=== PATIENT | male | born 1970 | race Caucasian/White ===

== ENCOUNTER 2020-02-15 13:54 | Inpatient (IN) | payer OTHER ==
[~2020-02-15] VITALS: Ht 177.8 cm; Wt 91.4 kg
[~2020-02-15 13:54] MED LIST: [UNRECOGNIZED DRUG - REMARK] ORAL ONE
[2020-02-15 15:41] LABS: BASOPHILS % (AUTO) 1.6 % (0.0-2.0); EOSINOPHILS % (AUTO) 1.2 % (0.0-3.0); HEMATOCRIT 42.8 % (42.0-52.0); HEMOGLOBIN 14.5 G/DL (14.2-18.0); LYMPHOCYTES % (AUTO) 31.9 % (20.0-45.0); MEAN CORPUSCULAR VOLUME 95 FL (80-99); MONOCYTES % (AUTO) 8.4 % (1.0-10.0); PLATELET COUNT 171 K/UL (150-450); RED BLOOD COUNT 4.51 M/UL (4.70-6.10); RED CELL DISTRIBUTION WIDTH 12.5 % (11.6-14.8); WHITE BLOOD COUNT 6.8 K/UL (4.8-10.8)
[2020-02-15] MEDS ORDERED: BIKTARVY 50-201 EACH PO (16:26)
[2020-02-15] MEDS ORDERED: DiphenhydrAMINE 50mg/ml Inj IV PRN (16:30)
[2020-02-15] MEDS ORDERED: Hydrocortisone 100mg Inj IV PRN (16:30)
[2020-02-15] MEDS ORDERED: Zolpidem 5mg tab ORAL PRN (16:30)
[2020-02-15] MEDS ORDERED: Acetaminophen 500mg (ES) tab ORAL PRN (16:30)
--- NOTE | 2020-02-15 17:25 | History & Physical ---
History and Physical History & Physicial Full H&P dictated #[id number] 49 yo male admitted for participation in [id number] clinical trial. He feels well. Allergies: none Meds: Biktarvy 1 qD, Vyvance 10 mg qD PMH: well-controlled HIV infection; hyperlipidemia, mild glucose intolerance Soc: no EtOH x 20+ years, no cigarettes ROS: no fever, chills, cough, SOB, KENNY. Had neg COVID PCR test today. No n/v/d. No dyuria, hematuria. No BRAVO, AMS PE: WNWD male NAD VSS Heent: nc/at PERRLA EOMI, mouth clear Neck: supple Lungs: clear Cor: reg no murmur Abd: soft, NT Ext: no c/c/e Neuro: non-focal Assess: 1) clinical trial participant 2) HIV, well controlled 3) hyperlipidemia Plan: manage per protocol; pt has given informed consent and will receive study medication tomorrow morning. Mckinley Lynn MD Feb 15, 2020 17:25
--- NOTE | 2020-02-15 18:15 | History and Physical Report ---
DATE OF ADMISSION: 02/15/2020 CHIEF COMPLAINT: The patient is electively admitted for participation in [employer] clinical trial [id number]. HISTORY OF PRESENT ILLNESS: The patient is a 49-year-old man followed in my practice by nurse practitioner, Landry Johnson, for HIV infection. He was diagnosed over a decade ago with HIV and has been successfully treated most recently with Biktarvy. He has an undetectable viral load and normal CD4 counts. The patient wishes to participate in this clinical trial and is admitted for the same. PAST MEDICAL HISTORY: The patient has a history of hyperlipidemia, mild glucose intolerance, vitamin D deficiency, colon polyps, and hypogonadism. FAMILY HISTORY: Noncontributory. SOCIAL HISTORY: The patient is a peck male. He is a former smoker. 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 ALLERGIES: No known drug allergies. MEDICATIONS: As an outpatient include Vyvanse 10 mg once a day, vitamins, and Biktarvy one tablet once a day. REVIEW OF SYSTEMS: The patient denies fevers, chills, or sweats. Denies weight change. Denies cough or shortness of breath. No new dyspnea on exertion. No chest pain. No nausea, vomiting, or diarrhea. No dysuria. No headache. No altered mental status. PHYSICAL EXAMINATION: GENERAL: Revealed a well-nourished, well-developed male in no acute distress. VITAL SIGNS: Included temperature 98.4, heart rate of 93, blood pressure 132/84, and BMI of 29.4, his respiratory rate was 16 per minute. HEENT: Normocephalic and atraumatic. Pupils are equal, round, and reactive. Oropharynx was without thrush or leukoplakia. NECK: Supple. No cervical or axillary adenopathy was evident. LUNGS: Clear to auscultation. HEART: Regular rhythm without murmurs or gallops. ABDOMEN: Soft and nontender. There is no hepatosplenomegaly. Bowel sounds were normal. EXTREMITIES: Without cyanosis, clubbing, or edema. NEUROLOGIC: Grossly nonfocal. LABORATORY DATA: Pending. IMPRESSION: 1. Elective admission for participation in clinical trial. 2. Well-controlled HIV infection. 3. Hyperglycemia. 4. Hyperlipidemia. DISCUSSION: The patient is a very pleasant 49-year-old man admitted for participation in a clinical trial. He has been informed of the risks, benefits, and alternatives to his participation and he has elected to proceed having made his choice without constraint. PLAN: Management per clinical. Mckinley Lynn M.D. DR: Monico JOB#: [id number] CC: Mckinley Lynn M.D.; [address] [place] [address], [address]; [place] [address]; Fax#: [phone] [facility]
[2020-02-15] MEDS: Patient's Own Med - BIKTARVY 50-200-25MG TAB ORAL SCH (21:03)
[2020-02-16] MEDS ORDERED: [UNRECOGNIZED DRUG - REMARK] ORAL SCH (08:00)
--- NOTE | 2020-02-16 13:16 | General Progress Note ---
Progress Note Progress Note S: pt feels well, tolerated administration of IP this AM. No new complaints. O: VSS. Afebrile. HEENT: nc/at Lungs: clear to a/ Cor: reg rhythm, no murmurs, gallops Abd: soft, NT; BS normal Ext: no c/c/e Labs Test 02/15/20 14:30 White Blood Count 6.8 K/UL (4.8-10.8) Red Blood Count 4.51 M/UL (4.70-6.10) Hemoglobin 14.5 G/DL (14.2-18.0) Hematocrit 42.8 % (42.0-52.0) Mean Corpuscular Volume 95 FL (80-99) Mean Corpuscular Hemoglobin 32.2 PG (27.0-31.0) Mean Corpuscular Hemoglobin Concent 34.0 G/DL (32.0-36.0) Red Cell Distribution Width 12.5 % (11.6-14.8) Platelet Count 171 K/UL (150-450) Mean Platelet Volume 4.8 FL (6.5-10.1) Neutrophils (%) (Auto) 57.0 % (45.0-75.0) Lymphocytes (%) (Auto) 31.9 % (20.0-45.0) Monocytes (%) (Auto) 8.4 % (1.0-10.0) Eosinophils (%) (Auto) 1.2 % (0.0-3.0) Basophils (%) (Auto) 1.6 % (0.0-2.0) A: well-controlled HIV infection Participation in [id number] Hyperlipidemia P: continue management per protocol; anticipate d/c AM of 02/17 Mckinley Lynn MD Feb 16, 2020 13:16
[2020-02-16] MEDS: Patient's Own Med - BIKTARVY 50-200-25MG TAB ORAL SCH (20:09)
[2020-02-17 02:15] VITALS: BP 109/63
[2020-02-17 09:22] LABS: BASOPHILS % (AUTO) 1.4 % (0.0-2.0); HEMATOCRIT 46.2 % (42.0-52.0); HEMOGLOBIN 15.5 G/DL (14.2-18.0); LYMPHOCYTES % (AUTO) 35.8 % (20.0-45.0); MEAN CORPUSCULAR VOLUME 96 FL (80-99); MONOCYTES % (AUTO) 13.3 % (1.0-10.0); NEUTROPHILS % (AUTO) 47.5 % (45.0-75.0); PLATELET COUNT 212 K/UL (150-450); RED BLOOD COUNT 4.79 M/UL (4.70-6.10); RED CELL DISTRIBUTION WIDTH 12.3 % (11.6-14.8); WHITE BLOOD COUNT 3.8 K/UL (4.8-10.8)
--- NOTE | 2020-02-17 09:33 | General Progress Note ---
Progress Note Progress Note S: Pt doing well, has no new complaints this morning O: VSS Afebrile HEENT: nc/at Neck: supple Lungs: clear Cor: reg no murmurs Abd: soft, NT Skin: no rashes Labs Test 02/15/20 14:30 02/17/20 08:18 White Blood Count 6.8 K/UL (4.8-10.8) 3.8 K/UL (4.8-10.8) Red Blood Count 4.51 M/UL (4.70-6.10) 4.79 M/UL (4.70-6.10) Hemoglobin 14.5 G/DL (14.2-18.0) 15.5 G/DL (14.2-18.0) Hematocrit 42.8 % (42.0-52.0) 46.2 % (42.0-52.0) Mean Corpuscular Volume 95 FL (80-99) 96 FL (80-99) Mean Corpuscular Hemoglobin 32.2 PG (27.0-31.0) 32.3 PG (27.0-31.0) Mean Corpuscular Hemoglobin Concent 34.0 G/DL (32.0-36.0) 33.5 G/DL (32.0-36.0) Red Cell Distribution Width 12.5 % (11.6-14.8) 12.3 % (11.6-14.8) Platelet Count 171 K/UL (150-450) 212 K/UL (150-450) Mean Platelet Volume 4.8 FL (6.5-10.1) 5.8 FL (6.5-10.1) Neutrophils (%) (Auto) 57.0 % (45.0-75.0) 47.5 % (45.0-75.0) Lymphocytes (%) (Auto) 31.9 % (20.0-45.0) 35.8 % (20.0-45.0) Monocytes (%) (Auto) 8.4 % (1.0-10.0) 13.3 % (1.0-10.0) Eosinophils (%) (Auto) 1.2 % (0.0-3.0) 2.0 % (0.0-3.0) Basophils (%) (Auto) 1.6 % (0.0-2.0) 1.4 % (0.0-2.0) A: 1) Participation in [id number] 2) HIV infection, well controlled 3) hyperlipidemia P: 1) continue to manage per protocol 2) anticipate discharge in AM tomorrow if stable Mckinley Lynn MD Feb 17, 2020 09:33
[2020-02-17] MEDS: Patient's Own Med - BIKTARVY 50-200-25MG TAB ORAL SCH (21:11)
[2020-02-18 08:00] VITALS: BP 124/84
[2020-02-18 09:16] LABS: HEMATOCRIT 44.1 % (42.0-52.0); HEMOGLOBIN 15.2 G/DL (14.2-18.0); MEAN CORPUSCULAR VOLUME 91 FL (80-99); PLATELET COUNT 227 K/UL (150-450); RED BLOOD COUNT 4.87 M/UL (4.70-6.10); RED CELL DISTRIBUTION WIDTH 12.1 % (11.6-14.8); WHITE BLOOD COUNT 3.8 K/UL (4.8-10.8)
--- NOTE | 2020-02-18 22:00 | Discharge Summary ---
DATE OF ADMISSION: 02/15/2020 DATE OF DISCHARGE: 02/18/2020 DISCHARGE DIAGNOSES: 1. Participation in [employer] clinical trial [id number]. 2. HIV infection, well controlled. 3. Hyperlipidemia. HISTORY OF PRESENT ILLNESS AND HOSPITAL COURSE: Patient is a 49-year-old man, followed by my associate, Dr. Mckinley Gonzales for HIV infection. He is a participant in the above clinical trial and was admitted on 02/15/2020 pursuant to the protocol. He received investigational product on the second hospital day and tolerated well. There were no adverse events noted. His hematology studies were stable. The patient was discharged in good condition to home with follow up in the office next week. DISCHARGE MEDICATIONS: 1. Biktarvy 1 tablet once a day. 2. Vyvanse 10 mg once a day. Mckinley Lynn M.D. DR: ALIREZA JOB#: [id number] CC: Mckinley Lynn MD; [address] [facility], [address]; [place] [address]; Fax#: [phone]
== END 2020-02-18 09:30 | disposition home or self-care (01) | DRG 951 ==
LOC: 3E 16:14
DX: Z00.6 Encounter for examination for normal comparison and control in clinical research program (principal); B20 Human immunodeficiency virus [HIV] disease; E78.5 Hyperlipidemia, unspecified; R73.9 Hyperglycemia, unspecified; E74.39 Other disorders of intestinal carbohydrate absorption; E55.9 Vitamin D deficiency, unspecified; Z79.899 Other long term (current) drug therapy; Z87.891 Personal history of nicotine dependence
CPT/HCPCS: 36415; 85007; 85025

== ENCOUNTER 2020-02-16 07:39 | Inpatient (IN) | payer OTHER ==
[~2020-02-16] VITALS: Ht 177.8 cm; Wt 92.1 kg
[~2020-02-16 07:39] MED LIST changes: +BIKTARVY 50-201 EACH PO; -[UNRECOGNIZED DRUG - REMARK] ORAL ONE
[2020-02-29] MEDS ORDERED: Zolpidem 5mg tab ORAL PRN (07:15)
[2020-02-29] MEDS ORDERED: Acetaminophen 500mg (ES) tab ORAL PRN (07:15)
[2020-02-29] MEDS ORDERED: DiphenhydrAMINE 50mg/ml Inj IV PRN (07:15)
[2020-02-29] MEDS ORDERED: Hydrocortisone 100mg Inj IV PRN (07:15)
--- NOTE | 2020-02-29 12:45 | History and Physical Report ---
DATE OF ADMISSION: 02/29/2020 CHIEF COMPLAINT: The patient is electively admitted for participation in [employer] clinical trial, [id number]. HISTORY OF PRESENT ILLNESS: The patient is a 49-year-old man followed by my colleague, Dr. Rogers for HIV infection, which has been well controlled. He is participating in the above clinical trial. This involves 5 hospitalizations over 10 weeks for three nights each. The patient is given investigational product at each visit. This is the second of five projected visits. He tolerated the first administration of the medication without any noticeable adverse events and now is admitted for the second of five cycles. PAST MEDICAL HISTORY: He was diagnosed with HIV many years ago. There is a history of hyperlipidemia and hypogonadism. The patient has a history of binge eating disorder, but is otherwise healthy. FAMILY HISTORY: Noncontributory. SOCIAL HISTORY: The patient does not smoke or drink. ALLERGIES: No known drug allergies. MEDICATIONS: Include Biktarvy 1 tablet once a day, Vyvanse 10 mg capsules once a day, and vitamins. REVIEW OF SYSTEMS: He denies fever, cough, or shortness of breath. He denies nausea, vomiting, or diarrhea. He denies dysuria or hematuria. He denies headache or altered mental status. PHYSICAL EXAMINATION: GENERAL: Revealed a well-nourished and well-developed male, in no acute distress. He is alert and oriented x4. VITAL SIGNS: Pending. HEENT: Normocephalic and atraumatic. Pupils are equal, round, and reactive. Oropharynx was without thrush or leukoplakia. NECK: Supple. No cervical or axillary adenopathy. LUNGS: Clear to auscultation. HEART: Regular rhythm without murmurs or gallops. ABDOMEN: Soft and nontender without hepatosplenomegaly. EXTREMITIES: Without cyanosis, clubbing, or edema. NEUROLOGIC: Grossly nonfocal. IMPRESSION: 1. Participation in [employer] clinical trial, [id number]. 2. HIV infection, well controlled on Biktarvy. 3. Hyperlipidemia. 4. Binge eating disorder. 5. Hypogonadism. DISCUSSION: The patient is a 49-year-old man participating in a clinical trial. I am satisfied that he has given his assent to continue participation without constraint. He has been given an opportunity to verbalize questions, all of which were addressed. PLAN: Proceed per protocol. Mckinley Lynn M.D. DR: ANNIE JOB#: [id number] CC: Mckinley Lynn M.D.; [address] [place] [address]; [place] [id number]; Fax#: [phone]
[2020-02-29 15:30] VITALS: BP 126/84
[2020-02-29 16:06] LABS: BASOPHILS % (AUTO) 1.1 % (0.0-2.0); EOSINOPHILS % (AUTO) 1.3 % (0.0-3.0); HEMATOCRIT 44.1 % (42.0-52.0); HEMOGLOBIN 14.8 G/DL (14.2-18.0); MEAN CORPUSCULAR VOLUME 96 FL (80-99); MONOCYTES % (AUTO) 10.4 % (1.0-10.0); NEUTROPHILS % (AUTO) 52.2 % (45.0-75.0); PLATELET COUNT 258 K/UL (150-450); RED BLOOD COUNT 4.62 M/UL (4.70-6.10); RED CELL DISTRIBUTION WIDTH 12.8 % (11.6-14.8); WHITE BLOOD COUNT 5.2 K/UL (4.8-10.8)
[2020-02-29] MEDS: BIKTARVY ORAL SCH (21:11)
[2020-03-01] MEDS ORDERED: [UNRECOGNIZED DRUG - OTHER] IVPB ONE (07:00)
[2020-03-01] MEDS ORDERED: [UNRECOGNIZED DRUG - REMARK] ORAL SCH (08:00)
--- NOTE | 2020-03-01 14:52 | General Progress Note ---
Progress Note Progress Note S: pt doing well, no new complaints. Tolerated administration well of IP (PO and IV); no observed AEs to now O: VSS Afebrile HEENT: nc/at Lungs: clear Cor: reg Abd: soft, NT Ext: no c/c/e Labs Test 02/29/20 15:00 White Blood Count 5.2 K/UL (4.8-10.8) Red Blood Count 4.62 M/UL (4.70-6.10) Hemoglobin 14.8 G/DL (14.2-18.0) Hematocrit 44.1 % (42.0-52.0) Mean Corpuscular Volume 96 FL (80-99) Mean Corpuscular Hemoglobin 32.1 PG (27.0-31.0) Mean Corpuscular Hemoglobin Concent 33.6 G/DL (32.0-36.0) Red Cell Distribution Width 12.8 % (11.6-14.8) Platelet Count 258 K/UL (150-450) Mean Platelet Volume 5.2 FL (6.5-10.1) Neutrophils (%) (Auto) 52.2 % (45.0-75.0) Lymphocytes (%) (Auto) 35.0 % (20.0-45.0) Monocytes (%) (Auto) 10.4 % (1.0-10.0) Eosinophils (%) (Auto) 1.3 % (0.0-3.0) Basophils (%) (Auto) 1.1 % (0.0-2.0) A: 1) participation in clinical trial. Pt wishes to continue. 2) HIV infection, well controlled P: 1) Continue to manage per protocol 2) anticipate d/c AM 115 if stable Mckinley Lynn MD Mar 01, 2020 14:52
[2020-03-01] MEDS: BIKTARVY ORAL SCH (21:41)
[2020-03-02 02:30] VITALS: BP 101/102
--- NOTE | 2020-03-02 08:17 | General Progress Note ---
Progress Note Progress Note S: pt doing well, no new complaints this morning. Tolerated IPs yesterday w/o any observed AEs O: VSS Afebrile HEENT: nc/at Neck: supple Lungs: clear Cor: reg Abd: soft, NT Ext: no c/c/e Skin: no rash Labs Test 02/29/20 15:00 White Blood Count 5.2 K/UL (4.8-10.8) Red Blood Count 4.62 M/UL (4.70-6.10) Hemoglobin 14.8 G/DL (14.2-18.0) Hematocrit 44.1 % (42.0-52.0) Mean Corpuscular Volume 96 FL (80-99) Mean Corpuscular Hemoglobin 32.1 PG (27.0-31.0) Mean Corpuscular Hemoglobin Concent 33.6 G/DL (32.0-36.0) Red Cell Distribution Width 12.8 % (11.6-14.8) Platelet Count 258 K/UL (150-450) Mean Platelet Volume 5.2 FL (6.5-10.1) Neutrophils (%) (Auto) 52.2 % (45.0-75.0) Lymphocytes (%) (Auto) 35.0 % (20.0-45.0) Monocytes (%) (Auto) 10.4 % (1.0-10.0) Eosinophils (%) (Auto) 1.3 % (0.0-3.0) Basophils (%) (Auto) 1.1 % (0.0-2.0) A: 1) participation in clinical trial 2) HIV infection, well-controlled P: 1) continue to manage per protocol 2) anticipate d/c in AM if stable overnight Mckinley Lynn MD Mar 02, 2020 08:17
[2020-03-02 09:14] LABS: EOSINOPHILS % (AUTO) 1.4 % (0.0-3.0); HEMATOCRIT 48.4 % (42.0-52.0); HEMOGLOBIN 16.2 G/DL (14.2-18.0); LYMPHOCYTES % (AUTO) 36.4 % (20.0-45.0); MEAN CORPUSCULAR VOLUME 97 FL (80-99); MONOCYTES % (AUTO) 10.9 % (1.0-10.0); NEUTROPHILS % (AUTO) 50.3 % (45.0-75.0); PLATELET COUNT 242 K/UL (150-450); RED BLOOD COUNT 4.98 M/UL (4.70-6.10); RED CELL DISTRIBUTION WIDTH 12.5 % (11.6-14.8); WHITE BLOOD COUNT 4.7 K/UL (4.8-10.8)
[2020-03-02 20:30] VITALS: BP_SYST 125; BP_SYST 128; BP_DIAS 76; BP_DIAS 80
[2020-03-02] MEDS: BIKTARVY ORAL SCH (20:59)
--- NOTE | 2020-03-03 08:15 | Discharge Summary ---
DATE OF ADMISSION: 02/29/2020 DATE OF DISCHARGE: 03/03/2020 DISCHARGE DIAGNOSES: 1. HIV infection, well controlled. 2. Participation in [employer] clinical trial, [id number]. 3. History of binge eating disorder. HISTORY OF PRESENT ILLNESS/HOSPITAL COURSE: The patient was electively admitted on the 2nd for participation in the above clinical trial. He received infusion and investigational product on the second hospital day, which he tolerated without any observed adverse events. Remainder of his hospitalization was uneventful. DISCHARGE MEDICATIONS: Include Biktarvy one tablet once a day, Vyvanse 10 mg once a day, and vitamins. Follow-up will be at the office. Discharge is to home. Mckinley Lynn M.D. DR: SUBHASH/DAKOTAH JOB#: [id number] CC: Mckinley Lynn M.D.; [address] [facility], [address]; [place] [address]
[2020-03-03 09:29] LABS: BASOPHILS % (AUTO) 1.1 % (0.0-2.0); EOSINOPHILS % (AUTO) 1.8 % (0.0-3.0); HEMATOCRIT 49.5 % (42.0-52.0); HEMOGLOBIN 16.3 G/DL (14.2-18.0); LYMPHOCYTES % (AUTO) 34.7 % (20.0-45.0); MEAN CORPUSCULAR VOLUME 99 FL (80-99); MONOCYTES % (AUTO) 14.3 % (1.0-10.0); NEUTROPHILS % (AUTO) 48.1 % (45.0-75.0); PLATELET COUNT 233 K/UL (150-450); RED BLOOD COUNT 5.01 M/UL (4.70-6.10); RED CELL DISTRIBUTION WIDTH 12.7 % (11.6-14.8); WHITE BLOOD COUNT 4.2 K/UL (4.8-10.8)
== END 2020-03-03 08:03 | disposition home or self-care (01) | DRG 951 ==
LOC: 3E 02-29 15:07
DX: Z00.6 Encounter for examination for normal comparison and control in clinical research program (principal); B20 Human immunodeficiency virus [HIV] disease; F50.81 Binge eating disorder; Z68.29 Body mass index [BMI] 29.0-29.9, adult; E78.5 Hyperlipidemia, unspecified; E29.1 Testicular hypofunction
CPT/HCPCS: 36415; 85025

== ENCOUNTER 2020-03-14 07:47 | Inpatient (IN) | payer OTHER ==
[~2020-03-14] VITALS: Ht 177.8 cm; Wt 90.7 kg
[~2020-03-14 07:47] MED LIST changes: +Acetaminophen 500mg (ES) tab ORAL PRN; +DiphenhydrAMINE 50mg/ml Inj IV PRN; +Hydrocortisone 100mg Inj IV PRN
--- NOTE | 2020-03-14 15:22 | History & Physical ---
History and Physical History & Physicial Full H&P dictated #[id number]. 49 yo male electively admitted for continued participation in [id number]. No interval problems since prior hospitalization, and he feels well. Will manage per protocol. Mckinley Lynn MD Mar 14, 2020 15:22
[2020-03-14 15:47] LABS: BASOPHILS % (AUTO) 1.5 % (0.0-2.0); EOSINOPHILS % (AUTO) 0.8 % (0.0-3.0); HEMATOCRIT 43.7 % (42.0-52.0); HEMOGLOBIN 14.8 G/DL (14.2-18.0); LYMPHOCYTES % (AUTO) 37.5 % (20.0-45.0); MEAN CORPUSCULAR VOLUME 95 FL (80-99); MONOCYTES % (AUTO) 12.1 % (1.0-10.0); NEUTROPHILS % (AUTO) 48.2 % (45.0-75.0); PLATELET COUNT 205 K/UL (150-450); RED BLOOD COUNT 4.58 M/UL (4.70-6.10); RED CELL DISTRIBUTION WIDTH 12.5 % (11.6-14.8); WHITE BLOOD COUNT 5.2 K/UL (4.8-10.8)
[2020-03-14 16:00] VITALS: BP 130/89
--- NOTE | 2020-03-14 17:00 | History and Physical Report ---
DATE OF ADMISSION: 03/14/2020 CHIEF COMPLAINT: The patient is electively admitted for participation in [employer] Clinical Trial [id number]. HISTORY OF PRESENT ILLNESS: The patient is a 49-year-old man, followed by my colleague, Dr. Garza for HIV infection, which has been historically well controlled. He is participating in the above clinical trial, which involves a series of 5 biweekly hospitalizations and treatment with the investigational product. This is cycle #3 for the patient. He has tolerated the previous 2 administrations of IP well without any adverse events noted. PAST MEDICAL HISTORY: He was diagnosed with HIV 20 years ago. He has a history of hyperlipidemia and hypogonadism as well as binge eating disorder. FAMILY HISTORY: Noncontributory. SOCIAL HISTORY: The patient does not smoke or drink. ALLERGIES: The patient has no known drug allergies. MEDICATIONS: As an outpatient include Biktarvy 1 tablet once a day and Vyvanse 10 mg once a day as needed, although he has not been taking this lately. REVIEW OF SYSTEMS: The patient denies fever or chills. Denies cough or shortness of breath. Denies nausea or vomiting. No diarrhea. No hematuria. No dysuria. No headache. No altered mental status. PHYSICAL EXAMINATION: GENERAL: Revealed a well-nourished, well-developed male in no acute distress. He is alert, oriented x4, and cooperative. VITAL SIGNS: Pending. HEENT: Normocephalic, atraumatic. Pupils equal, round, and reactive. Oropharynx was without thrush or leukoplakia. NECK: Supple. There was no cervical or axillary adenopathy. LUNGS: Clear to auscultation. HEART: Had regular rhythm without murmurs or gallops. ABDOMEN: Soft and nontender. There was no hepatosplenomegaly. EXTREMITIES: Without cyanosis, clubbing, or edema. NEUROLOGIC: Grossly nonfocal. IMPRESSION: 1. HIV infection, well controlled. 2. Hyperlipidemia. 3. Hypogonadism. 4. Binge eating disorder history. 5. Participation in [employer] Clinical Trial [id number]. DISCUSSION: The patient is a 49-year-old man participating in the above clinical trial. He wishes to continue his participation and continues to offer his informed consent to do this. Our plan will be to dose investigational products tomorrow morning with confinement continued for 2 hospital days after that. The patient was given an opportunity to verbalize all questions, which were addressed. PLAN: manage per protocol. Mckinley Lynn M.D. DR: Nayan JOB#: [id number] CC: Mckinley Lynn MD; [address] [facility], [facility] [address]; [place], [place] ; Fax#: [phone] [facility]
[2020-03-14 20:00] VITALS: BP 130/81
[2020-03-14] MEDS: Patient's Own Med - Biktarvy ORAL SCH (20:13)
[2020-03-15] MEDS ORDERED: [UNRECOGNIZED DRUG - OTHER] IVPB SCH (08:10)
[2020-03-15] MEDS ORDERED: [UNRECOGNIZED DRUG - REMARK] ORAL SCH (09:10)
--- NOTE | 2020-03-15 14:44 | General Progress Note ---
Progress Note Progress Note S: pt doing well with no new complaints; tolerated IPs this AM w/o any observed AEs O: VSS. Afebrile HEENT: nc/at Lungs: clear Cor: reg Abd: soft, NT Ext: no c/c/e Neuro: non-focal Skin: no rashes Labs Test 03/14/20 15:30 White Blood Count 5.2 K/UL (4.8-10.8) Red Blood Count 4.58 M/UL (4.70-6.10) Hemoglobin 14.8 G/DL (14.2-18.0) Hematocrit 43.7 % (42.0-52.0) Mean Corpuscular Volume 95 FL (80-99) Mean Corpuscular Hemoglobin 32.4 PG (27.0-31.0) Mean Corpuscular Hemoglobin Concent 33.9 G/DL (32.0-36.0) Red Cell Distribution Width 12.5 % (11.6-14.8) Platelet Count 205 K/UL (150-450) Mean Platelet Volume 4.9 FL (6.5-10.1) Neutrophils (%) (Auto) 48.2 % (45.0-75.0) Lymphocytes (%) (Auto) 37.5 % (20.0-45.0) Monocytes (%) (Auto) 12.1 % (1.0-10.0) Eosinophils (%) (Auto) 0.8 % (0.0-3.0) Basophils (%) (Auto) 1.5 % (0.0-2.0) A: 1) HIV infection, well controlled 2) participation in clinical trial; pt wishes to continue P: 1) continue to manage per protocol 2) anticipate d/c 03/17 if stable Mckinley Lynn MD Mar 15, 2020 14:44
[2020-03-15] MEDS: Patient's Own Med - Biktarvy ORAL SCH (20:10)
[2020-03-16 03:10] VITALS: BP 100/60
--- NOTE | 2020-03-16 08:14 | General Progress Note ---
Progress Note Progress Note S: pt has no new complaints this AM, feels well O: VSS Afebrile HEENT: nc/at Lungs: clear Cor: reg no murmurs Abd: soft, NT Ext: no c/c/e Skin: no rashes Neuro: non-focal Labs Test 03/14/20 15:30 White Blood Count 5.2 K/UL (4.8-10.8) Red Blood Count 4.58 M/UL (4.70-6.10) Hemoglobin 14.8 G/DL (14.2-18.0) Hematocrit 43.7 % (42.0-52.0) Mean Corpuscular Volume 95 FL (80-99) Mean Corpuscular Hemoglobin 32.4 PG (27.0-31.0) Mean Corpuscular Hemoglobin Concent 33.9 G/DL (32.0-36.0) Red Cell Distribution Width 12.5 % (11.6-14.8) Platelet Count 205 K/UL (150-450) Mean Platelet Volume 4.9 FL (6.5-10.1) Neutrophils (%) (Auto) 48.2 % (45.0-75.0) Lymphocytes (%) (Auto) 37.5 % (20.0-45.0) Monocytes (%) (Auto) 12.1 % (1.0-10.0) Eosinophils (%) (Auto) 0.8 % (0.0-3.0) Basophils (%) (Auto) 1.5 % (0.0-2.0) A: 1) participation in [id number] clinical trial - doing well w/o AEs noted 2) HIV infection, well controlled on ART P: 1) manage per protocol 2) anticipate discharge in AM if stable overnight Mckinley Lynn MD Mar 16, 2020 08:14
[2020-03-16 08:27] LABS: BASOPHILS % (AUTO) 1.2 % (0.0-2.0); EOSINOPHILS % (AUTO) 2.6 % (0.0-3.0); HEMATOCRIT 47.2 % (42.0-52.0); HEMOGLOBIN 15.6 G/DL (14.2-18.0); MEAN CORPUSCULAR VOLUME 99 FL (80-99); MONOCYTES % (AUTO) 12.9 % (1.0-10.0); NEUTROPHILS % (AUTO) 45.3 % (45.0-75.0); PLATELET COUNT 197 K/UL (150-450); RED BLOOD COUNT 4.78 M/UL (4.70-6.10); RED CELL DISTRIBUTION WIDTH 12.5 % (11.6-14.8); WHITE BLOOD COUNT 3.7 K/UL (4.8-10.8)
[2020-03-16] MEDS: Patient's Own Med - Biktarvy ORAL SCH (21:14)
[2020-03-17 08:23] LABS: BASOPHILS % (AUTO) 1.5 % (0.0-2.0); HEMATOCRIT 45.9 % (42.0-52.0); HEMOGLOBIN 15.5 G/DL (14.2-18.0); LYMPHOCYTES % (AUTO) 32.7 % (20.0-45.0); MEAN CORPUSCULAR VOLUME 96 FL (80-99); MONOCYTES % (AUTO) 15.2 % (1.0-10.0); NEUTROPHILS % (AUTO) 48.5 % (45.0-75.0); PLATELET COUNT 208 K/UL (150-450); RED BLOOD COUNT 4.76 M/UL (4.70-6.10); RED CELL DISTRIBUTION WIDTH 12.4 % (11.6-14.8); WHITE BLOOD COUNT 4.2 K/UL (4.8-10.8)
--- NOTE | 2020-03-18 02:00 | Discharge Summary ---
DATE OF ADMISSION: 03/14/2020 DATE OF DISCHARGE: 03/17/2020 DISCHARGE DIAGNOSES: 1. Participation in [employer] clinical trial, [id number]. 2. HIV infection, well controlled on Biktarvy. 3. History of hyperlipidemia. 4. History of hypogonadism. 5. History of binge eating disorder. HISTORY OF PRESENT ILLNESS AND HOSPITAL COURSE: The patient is a 49-year-old man who was electively admitted for participation in the above clinical trial. He received investigational product on the second hospital day and tolerated it well without any adverse events noted. He is discharged in stable condition to home with followup in the office next Saturday. DISCHARGE MEDICATIONS: Included Biktarvy 1 tablet once a day and Vyvanse 10 mg once a day as needed although he states he has not been taking this recently. Mckinley Lynn M.D. DR: SELINA JOB#: [id number] CC: Mckinley Lynn M.D.; [address] [place] [address], [facility] [address] ; [place] [id number]; Fax#: [phone]
== END 2020-03-17 08:39 | disposition home or self-care (01) | DRG 951 ==
LOC: 3E 14:40
DX: Z00.6 Encounter for examination for normal comparison and control in clinical research program (principal); B20 Human immunodeficiency virus [HIV] disease; E78.5 Hyperlipidemia, unspecified; F50.81 Binge eating disorder
CPT/HCPCS: 36415; 85025

== ENCOUNTER 2020-03-28 07:51 | Inpatient (IN) | payer OTHER ==
[~2020-03-28] VITALS: Ht 177.8 cm; Wt 90.7 kg
[~2020-03-28 07:51] MED LIST changes: +Zolpidem 5mg tab ORAL PRN
[2020-03-28 14:48] LABS: BASOPHILS % (AUTO) 1.2 % (0.0-2.0); EOSINOPHILS % (AUTO) 1.1 % (0.0-3.0); HEMOGLOBIN 15.5 G/DL (14.2-18.0); LYMPHOCYTES % (AUTO) 33.3 % (20.0-45.0); MEAN CORPUSCULAR VOLUME 94 FL (80-99); MONOCYTES % (AUTO) 10.1 % (1.0-10.0); NEUTROPHILS % (AUTO) 54.3 % (45.0-75.0); PLATELET COUNT 242 K/UL (150-450); RED BLOOD COUNT 4.81 M/UL (4.70-6.10); RED CELL DISTRIBUTION WIDTH 12.8 % (11.6-14.8); WHITE BLOOD COUNT 6.6 K/UL (4.8-10.8)
--- NOTE | 2020-03-28 15:10 | History & Physical ---
History and Physical History & Physicial Full H&P dictated #[id number] 49 yo male electively admitted for continued participation in [id number]. No interval problems since prior hospitalization, and he feels well. Will manage per protocol. Mckinley Lynn MD Mar 28, 2020 15:10
[2020-03-28 15:15] VITALS: BP 121/77
--- NOTE | 2020-03-28 16:14 | History and Physical Report ---
DATE OF ADMISSION: 03/28/2020 CHIEF COMPLAINT: The patient is electively admitted for continued participation in [employer] clinical trial, [id number]. HISTORY OF PRESENT ILLNESS: The patient is a 49-year-old man followed by my associate, Dr. Rogers for HIV infection, which has been well controlled on Biktarvy. He is now admitted for the fourth of 5 cycles of investigational product. There is no significant interval medical history since his last discharge 10 days ago. He has been feeling well. PAST MEDICAL HISTORY: The patient was diagnosed with HIV 20 years ago. There is a history of hyperlipidemia, hypogonadism, as well as binge eating disorder. FAMILY HISTORY: Noncontributory. SOCIAL HISTORY: The patient does not smoke or drink. ALLERGIES: No known drug allergies. MEDICATIONS: Biktarvy 1 tablet daily and Vyvanse 10 mg once a day as needed, although he has not been taking this recently. REVIEW OF SYSTEMS: Denies fevers, chills, cough, shortness of breath, dyspnea on exertion, or chest pain. Denies nausea, vomiting, or diarrhea. Denies dysuria, hematuria. No history of headaches or altered mental status or paresthesias. PHYSICAL EXAMINATION: GENERAL: A well-nourished, well-developed male who is alert and oriented x4 and cooperative. VITAL SIGNS: Pending. HEENT: Normocephalic, atraumatic. Pupils equal, round, and reactive. Oropharynx was without thrush or leukoplakia. NECK: Supple. No cervical or axillary adenopathy. LUNGS: Clear to auscultation. HEART: Regular bradycardia. ABDOMEN: Soft and nontender. EXTREMITIES: Without cyanosis, clubbing, or edema. SKIN: No rash. NEUROLOGIC: Grossly nonfocal. IMPRESSION: 1. Participation in [employer] clinical trial, [id number]. 2. HIV infection, well controlled on Biktarvy. 3. Hypogonadism. 4. Hyperlipidemia. 5. History of binge eating disorder. DISCUSSION/PLAN: The patient is a 49-year-old man who wishes to continue his participation in this clinical trial. I am satisfied that he has given his consent without coercion. We will manage the patient per the protocol, and we will dose investigational products in the morning and observe for the following 2 nights and plan on discharge on if he is clinically stable. Mckinley Lynn M.D. DR: PRISCILA JOB#: [id number] CC: SUDHA
[2020-03-28] MEDS: Patient's Own Med - Biktarvy ORAL SCH (18:41)
[2020-03-28 20:00] VITALS: BP 123/77
[2020-03-28] MEDS ORDERED: Patient's Own Med - Biktarvy ORAL SCH (21:00)
[2020-03-29] MEDS ORDERED: [UNRECOGNIZED DRUG - OTHER] IVPB SCH (08:10)
[2020-03-29] MEDS ORDERED: [UNRECOGNIZED DRUG - REMARK] ORAL SCH (09:10)
--- NOTE | 2020-03-29 15:55 | General Progress Note ---
Progress Note Progress Note S: pt doing well, no new complaints; tolerated IP administration this AM w/0 observed AEs O: VSS Afebrile HEENT: nc/at Neck: supple Lungs: clear Cor: reg no murmurs Abd: soft, NT Ext: no c/c/e Skin: no rashes Neuro: non-focal Labs Test 03/28/20 14:04 White Blood Count 6.6 K/UL (4.8-10.8) Red Blood Count 4.81 M/UL (4.70-6.10) Hemoglobin 15.5 G/DL (14.2-18.0) Hematocrit 45.0 % (42.0-52.0) Mean Corpuscular Volume 94 FL (80-99) Mean Corpuscular Hemoglobin 32.3 PG (27.0-31.0) Mean Corpuscular Hemoglobin Concent 34.5 G/DL (32.0-36.0) Red Cell Distribution Width 12.8 % (11.6-14.8) Platelet Count 242 K/UL (150-450) Mean Platelet Volume 5.1 FL (6.5-10.1) Neutrophils (%) (Auto) 54.3 % (45.0-75.0) Lymphocytes (%) (Auto) 33.3 % (20.0-45.0) Monocytes (%) (Auto) 10.1 % (1.0-10.0) Eosinophils (%) (Auto) 1.1 % (0.0-3.0) Basophils (%) (Auto) 1.2 % (0.0-2.0) A: 1) HIV, well controlled 2) h/o binge eating disorder, not active 3) participation in clinical trial. Pt is doing well and wishes to continue P: 1) manage per protocol. Anticipate d/c Thurs AM if stable Mckinley Lynn MD Mar 29, 2020 15:55
[2020-03-29] MEDS: Patient's Own Med - Biktarvy ORAL SCH (18:10)
[2020-03-29 20:00] VITALS: BP 130/85
[2020-03-30 08:28] LABS: BASOPHILS % (AUTO) 1.7 % (0.0-2.0); HEMATOCRIT 41.2 % (42.0-52.0); HEMOGLOBIN 14.8 G/DL (14.2-18.0); LYMPHOCYTES % (AUTO) 31.8 % (20.0-45.0); MEAN CORPUSCULAR VOLUME 90 FL (80-99); MONOCYTES % (AUTO) 13.4 % (1.0-10.0); NEUTROPHILS % (AUTO) 51.1 % (45.0-75.0); PLATELET COUNT 221 K/UL (150-450); RED BLOOD COUNT 4.58 M/UL (4.70-6.10); RED CELL DISTRIBUTION WIDTH 13.7 % (11.6-14.8); WHITE BLOOD COUNT 3.8 K/UL (4.8-10.8)
--- NOTE | 2020-03-30 11:48 | General Progress Note ---
Progress Note Progress Note S: no new complaints, feels well O: VSS Afebrile HEENT: nc/at Neck: supple Cor: reg Abd: soft, NT Ext: no c/c/e Neuro: non-focal Skin: no rashes Labs Test 03/28/20 14:04 03/30/20 08:10 White Blood Count 6.6 K/UL (4.8-10.8) 3.8 K/UL (4.8-10.8) Red Blood Count 4.81 M/UL (4.70-6.10) 4.58 M/UL (4.70-6.10) Hemoglobin 15.5 G/DL (14.2-18.0) 14.8 G/DL (14.2-18.0) Hematocrit 45.0 % (42.0-52.0) 41.2 % (42.0-52.0) Mean Corpuscular Volume 94 FL (80-99) 90 FL (80-99) Mean Corpuscular Hemoglobin 32.3 PG (27.0-31.0) 32.3 PG (27.0-31.0) Mean Corpuscular Hemoglobin Concent 34.5 G/DL (32.0-36.0) 35.9 G/DL (32.0-36.0) Red Cell Distribution Width 12.8 % (11.6-14.8) 13.7 % (11.6-14.8) Platelet Count 242 K/UL (150-450) 221 K/UL (150-450) Mean Platelet Volume 5.1 FL (6.5-10.1) 5.4 FL (6.5-10.1) Neutrophils (%) (Auto) 54.3 % (45.0-75.0) 51.1 % (45.0-75.0) Lymphocytes (%) (Auto) 33.3 % (20.0-45.0) 31.8 % (20.0-45.0) Monocytes (%) (Auto) 10.1 % (1.0-10.0) 13.4 % (1.0-10.0) Eosinophils (%) (Auto) 1.1 % (0.0-3.0) 2.0 % (0.0-3.0) Basophils (%) (Auto) 1.2 % (0.0-2.0) 1.7 % (0.0-2.0) A: 1) HIV, well controlled 2) participation in clinical trial - pt doing well with no AEs noted P: manage per protocol; anticipate discharge tomorrow morning if stable Mckinley Lynn MD Mar 30, 2020 11:48
[2020-03-30] MEDS: Patient's Own Med - Biktarvy ORAL SCH (18:53)
[2020-03-31 08:23] LABS: BASOPHILS % (AUTO) 1.9 % (0.0-2.0); EOSINOPHILS % (AUTO) 1.4 % (0.0-3.0); HEMATOCRIT 41.5 % (42.0-52.0); HEMOGLOBIN 15.5 G/DL (14.2-18.0); LYMPHOCYTES % (AUTO) 30.4 % (20.0-45.0); MEAN CORPUSCULAR VOLUME 87 FL (80-99); MONOCYTES % (AUTO) 14.8 % (1.0-10.0); NEUTROPHILS % (AUTO) 51.5 % (45.0-75.0); PLATELET COUNT 228 K/UL (150-450); RED BLOOD COUNT 4.75 M/UL (4.70-6.10); RED CELL DISTRIBUTION WIDTH 13.9 % (11.6-14.8); WHITE BLOOD COUNT 4.7 K/UL (4.8-10.8)
--- NOTE | 2020-03-31 08:30 | Discharge Summary ---
DATE OF ADMISSION: 03/28/2020 DATE OF DISCHARGE: 03/31/2020 DISCHARGE DIAGNOSES: 1. Participation in [employer] clinical trial, [id number]. 2. HIV infection, well controlled on Biktarvy. 3. History of binge eating disorder. DISCHARGE MEDICATIONS: Include Biktarvy one tablet daily and Vyvanse 10 mg once a day as needed, although he has not been taking this recently. DISCHARGE CONDITION: Discharge is to home in stable condition with follow up in the office next week. HISTORY OF PRESENT ILLNESS AND HOSPITAL COURSE: The patient was electively admitted on 03/28/2020 for continued participation in the proper clinical trial. He received his fourth out of the projected five cycles of investigational product without any adverse events noted. He will be followed up in the clinic next week. Mckinley Lynn M.D. DR: ANNIE JOB#: [id number] CC:
== END 2020-03-31 07:55 | disposition home or self-care (01) | DRG 951 ==
LOC: 3E 14:43
DX: Z00.6 Encounter for examination for normal comparison and control in clinical research program (principal); B20 Human immunodeficiency virus [HIV] disease; E78.5 Hyperlipidemia, unspecified; F50.81 Binge eating disorder
CPT/HCPCS: 36415; 85025

== ENCOUNTER 2020-04-11 07:54 | Inpatient (IN) | payer OTHER ==
[~2020-04-11] VITALS: Ht 177.8 cm; Wt 91.2 kg
--- NOTE | 2020-04-11 11:45 | History and Physical Report ---
DATE OF ADMISSION: 04/11/2020 CHIEF COMPLAINT: The patient is electively admitted for the fifth of projected five cycles of investigational product administration. HISTORY OF PRESENT ILLNESS: The patient is a 49-year-old man followed by nurse practitioner, Landry Johnson for HIV infection, which has been well controlled. He was diagnosed over a decade ago and was successfully treated and was most recently has been on Biktarvy. He has nondetectable viral load and normal CD4 cells. PAST MEDICAL HISTORY: There is a history of hyperlipidemia, mild glucose intolerance, vitamin D deficiency, and hypogonadism. FAMILY HISTORY: Noncontributory. SOCIAL HISTORY: The patient does not smoke or drink. There is no recreational drug use. ALLERGIES: No known drug allergies. MEDICATIONS: Included Vyvanse 10 mg once a day as needed for binge eating disorder and Biktarvy one tablet daily. REVIEW OF SYSTEMS: The patient denies weight loss, fevers, chills, cough, shortness of breath, or dyspnea on exertion. He denies chest pain. Denies nausea, vomiting, or diarrhea. He denies dysuria or hematuria. He denies headache and altered mental status. PHYSICAL EXAMINATION: GENERAL: Revealed a well-nourished and well-developed male, who is in no acute distress. VITAL SIGNS: Pending. HEENT: Normocephalic, atraumatic. Pupils were equal, round, and reactive. Oropharynx was without thrush or leukoplakia. NECK: Supple. No cervical or axillary adenopathy. LUNGS: Clear to auscultation. HEART: Regular rhythm without murmurs or gallops. ABDOMEN: Soft, nontender. EXTREMITIES: Without cyanosis, clubbing, or edema. SKIN: Without rashes. NEUROLOGIC: Grossly nonfocal. IMPRESSION: 1. Participation in [employer] clinical trial, [id number]. 2. Human immunodeficiency virus infection, well controlled on Biktarvy. 3. Hyperlipidemia. 4. History of binge eating disorder, not currently active. DISCUSSION: The patient is a very pleasant 49-year-old man who is electively admitted for continued participation in his drug study. He will receive the fifth of 5 cycles of investigational products tomorrow morning. He will be followed closely thereafter. We discussed risks and benefits in detail, and I am satisfied that he has given his informed consent without coercion. PLAN: 1. Manage per protocol. 2. Continue outpatient medications. Mckinley Lynn M.D. DR: ANNIE JOB#: [id number] CC: SUDHA
--- NOTE | 2020-04-11 14:40 | NUR ---
NURSE NOTES: Patient arrived safely to 3E, ambulatory. Patient is awake and alert, no signs of distress noted, breathing is even and unlabored on room air. Bed is low and locked, side rails up x2, call light is within reach.
[2020-04-11 14:45] VITALS: BP 125/80
[2020-04-11 15:38] LABS: BASOPHILS % (AUTO) 0.8 % (0.0-2.0); EOSINOPHILS % (AUTO) 1.2 % (0.0-3.0); HEMATOCRIT 43.2 % (42.0-52.0); HEMOGLOBIN 15.3 G/DL (14.2-18.0); MEAN CORPUSCULAR VOLUME 90 FL (80-99); MONOCYTES % (AUTO) 9.4 % (1.0-10.0); NEUTROPHILS % (AUTO) 52.7 % (45.0-75.0); PLATELET COUNT 236 K/UL (150-450); RED BLOOD COUNT 4.78 M/UL (4.70-6.10); RED CELL DISTRIBUTION WIDTH 13.1 % (11.6-14.8); WHITE BLOOD COUNT 4.9 K/UL (4.8-10.8)
--- NOTE | 2020-04-11 19:30 | NUR ---
NURSE HAND-OFF: Important Events on Shift:[arrival to 3E] Patient Status: [Stable] Diet: regular, no caffeine no chocolate Pending Orders: Pending Results/Labs: Pending MD notification: Latest Vital Signs: Temperature 98.6 , Pulse 89 , B/P 125 /80 , Respiratory Rate 18 , O2 SAT 97 , , O2 Flow Rate . Vital Sign Comment: stable Latest Lopez Fall Score: 0 Fall Risk: Low Risk Safety Measures: Call light Within Reach, Bed Alarm Zone 1, Side Rails Side Rails x2, Bed position Low and Locked. Fall Precautions: Patient Fall Education Report given to Mari RN.
--- NOTE | 2020-04-11 19:30 | NUR ---
NURSE NOTES: Receive a report from JANNETH Maguire.
--- NOTE | 2020-04-11 20:00 | NUR ---
NURSE NOTES: Pt is awake and alert. No acute distress noted. Denies any pain/itching. Inform pf of tomorrow's schedule. Call light within reach. Will continue to monitor.
[2020-04-11] MEDS: Patient's Own Med - Biktarvy ORAL SCH (20:36)
[2020-04-11 21:00] VITALS: BP 146/91
[2020-04-12] VITALS: BP 143/86
[2020-04-12] MEDS: Patient's Own Med - Biktarvy ORAL SCH ×2 (06:59→21:06)
--- NOTE | 2020-04-12 07:30 | NUR ---
NURSE HAND-OFF: Important Events on Shift: Clinical Trial Patient Status: [stable] Diet: [NPO-->regular] Pending Orders: [] Pending Results/Labs:[] Pending MD notification:[] Latest Vital Signs: Temperature 98.2 , Pulse 76 , B/P 143 /86 , Respiratory Rate 16 , O2 SAT 99 , Room Air, O2 Flow Rate . Vital Sign Comment: [] Latest Lopez Fall Score: 0 Fall Risk: Low Risk Safety Measures: Call light Within Reach, Bed Alarm Zone 1, Side Rails Side Rails x2, Bed position Low and Locked. Fall Precautions: Patient Fall Education Report given to JANNETH Silva.
[2020-04-12] MEDS ORDERED: [UNRECOGNIZED DRUG - OTHER] IVPB SCH (07:45)
--- NOTE | 2020-04-12 08:00 | NUR ---
NURSE NOTES:RECEIVED REPORT FRREE RN.PT,LYING IN BED,NO DISTRESS NOTED. AND STAFF WITH PT. WILL CONTINUE PLAN OF CARE.
[2020-04-12] MEDS ORDERED: [UNRECOGNIZED DRUG - REMARK] ORAL SCH (08:45)
--- NOTE | 2020-04-12 15:07 | General Progress Note ---
Progress Note Progress Note S: Pt doing well, no new complaints. Tolerated IP this AM, no observed AEs noted O: VSS. Afebrile HEENT: nc/at Neck: supple Lungs: clear Cor: reg Abd: soft, NT Ext: no c/c/e Skin: no rashes Neuro: non-focal Labs Test 04/11/20 13:55 White Blood Count 4.9 K/UL (4.8-10.8) Red Blood Count 4.78 M/UL (4.70-6.10) Hemoglobin 15.3 G/DL (14.2-18.0) Hematocrit 43.2 % (42.0-52.0) Mean Corpuscular Volume 90 FL (80-99) Mean Corpuscular Hemoglobin 32.0 PG (27.0-31.0) Mean Corpuscular Hemoglobin Concent 35.5 G/DL (32.0-36.0) Red Cell Distribution Width 13.1 % (11.6-14.8) Platelet Count 236 K/UL (150-450) Mean Platelet Volume 5.2 FL (6.5-10.1) Neutrophils (%) (Auto) 52.7 % (45.0-75.0) Lymphocytes (%) (Auto) 36.0 % (20.0-45.0) Monocytes (%) (Auto) 9.4 % (1.0-10.0) Eosinophils (%) (Auto) 1.2 % (0.0-3.0) Basophils (%) (Auto) 0.8 % (0.0-2.0) A: 1) HIV infection, well controlled 2) clinical trial participation, doing well, wishes to continue P: 1) manage per protocol 2) anticipate d/c 04/14 if stable Mckinley Lynn MD Apr 12, 2020 15:07
--- NOTE | 2020-04-12 19:34 | NUR ---
HAND-OFF: Report given to Julien BUCHANAN RN.PT. STABLE.
--- NOTE | 2020-04-12 20:00 | NUR ---
NURSE NOTES: patient alert and oriented no pain or any discomfort noted.
[2020-04-13 02:55] VITALS: BP 128/71
--- NOTE | 2020-04-13 06:14 | NUR ---
NURSE HAND-OFF: Important Events on Shift:[] patient slept well no distress, denied pain or discomfort. Patient Status: [] stable Diet: [] regular, no caffeine and chocolate Pending Orders: [] none Pending Results/Labs:[] cbc Pending MD notification:[] none Latest Vital Signs: Temperature 97.9 , Pulse 60 , B/P 128 /71 , Respiratory Rate 18 , O2 SAT 99 , Room Air, O2 Flow Rate . Vital Sign Comment: [] Latest Lopez Fall Score: 0 Fall Risk: Low Risk Safety Measures: Call light Within Reach, Bed Alarm Zone 1, Side Rails Side Rails x2, Bed position Low and Locked. Fall Precautions: Patient Fall Education Report given to []. Addendum: 04/13/20 at 0735 by Trinidad Otto RN report given to mariela ashton rn
[2020-04-13 08:18] LABS: HEMATOCRIT 41.5 % (42.0-52.0); MEAN CORPUSCULAR VOLUME 90 FL (80-99); PLATELET COUNT 216 K/UL (150-450); RED BLOOD COUNT 4.59 M/UL (4.70-6.10); RED CELL DISTRIBUTION WIDTH 12.6 % (11.6-14.8); WHITE BLOOD COUNT 3.4 K/UL (4.8-10.8)
--- NOTE | 2020-04-13 15:24 | General Progress Note ---
Progress Note Progress Note S: pt doing well, has no new complaints today O: VSS Afebrile HEENT: nc/at Neck: supple Lungs: clear Cor: reg Abd: soft, NT Ext: c/c/e Neuro: non-focal Skin: no rashes Labs Test 04/11/20 13:55 04/13/20 07:55 White Blood Count 4.9 K/UL (4.8-10.8) 3.4 K/UL (4.8-10.8) Red Blood Count 4.78 M/UL (4.70-6.10) 4.59 M/UL (4.70-6.10) Hemoglobin 15.3 G/DL (14.2-18.0) 15.0 G/DL (14.2-18.0) Hematocrit 43.2 % (42.0-52.0) 41.5 % (42.0-52.0) Mean Corpuscular Volume 90 FL (80-99) 90 FL (80-99) Mean Corpuscular Hemoglobin 32.0 PG (27.0-31.0) 32.7 PG (27.0-31.0) Mean Corpuscular Hemoglobin Concent 35.5 G/DL (32.0-36.0) 36.2 G/DL (32.0-36.0) Red Cell Distribution Width 13.1 % (11.6-14.8) 12.6 % (11.6-14.8) Platelet Count 236 K/UL (150-450) 216 K/UL (150-450) Mean Platelet Volume 5.2 FL (6.5-10.1) 5.2 FL (6.5-10.1) Neutrophils (%) (Auto) 52.7 % (45.0-75.0) % (45.0-75.0) Lymphocytes (%) (Auto) 36.0 % (20.0-45.0) % (20.0-45.0) Monocytes (%) (Auto) 9.4 % (1.0-10.0) % (1.0-10.0) Eosinophils (%) (Auto) 1.2 % (0.0-3.0) % (0.0-3.0) Basophils (%) (Auto) 0.8 % (0.0-2.0) % (0.0-2.0) Differential Total Cells Counted 100 Neutrophils % (Manual) 44 % (45-75) Lymphocytes % (Manual) 41 % (20-45) Monocytes % (Manual) 13 % (1-10) Eosinophils % (Manual) 2 % (0-3) Basophils % (Manual) 0 % (0-2) Band Neutrophils 0 % (0-8) Platelet Estimate Adequate Platelet Morphology Normal Red Blood Cell Morphology Normal A: 1) participation in clinical trial - tolerating it well, no AEs noted 2) HIV, well controlled on ART P: 1) manage per protocol 2) anticipate discharge in AM if stable overnight Mckinley Lynn MD Apr 13, 2020 15:24
--- NOTE | 2020-04-13 17:14 | NUR ---
NURSE NOTES: UNEVENTFUL DAY. PATIENT REMAINS STABLE.
--- NOTE | 2020-04-13 19:18 | NUR ---
NURSE HAND-OFF: Important Events on Shift:N/A Patient Status: STABLE Diet: REGULAR Pending Orders: N/A Pending Results/Labs:N/A Pending MD notification: N/A Latest Vital Signs: Temperature 97.9 , Pulse 60 , B/P 128 /71 , Respiratory Rate 18 , O2 SAT 99 , Room Air, O2 Flow Rate . Vital Sign Comment: N/A Latest Lopez Fall Score: 20 Fall Risk: Low Risk Safety Measures: Call light Within Reach, Bed Alarm Zone 1, Side Rails Side Rails x2, Bed position Low and Locked. Fall Precautions: Door Sign Patient Fall Education Report given to JOEL SILVA RN.
--- NOTE | 2020-04-13 20:15 | NUR ---
NURSE NOTES: Pt is walking around in the room. Alert, oriented and verbal. No acute distress noted. Pt asked to call for assistance if needed. Pt will be monitored.
[2020-04-13] MEDS: Patient's Own Med - Biktarvy ORAL SCH (21:01)
--- NOTE | 2020-04-14 07:24 | NUR ---
NURSE HAND-OFF: Important Events on Shift:[Discharge today] Patient Status: [Stable] Diet: [Regular] Pending Orders: [] Pending Results/Labs:[] Pending MD notification:[] Latest Vital Signs: Temperature 97.9 , Pulse 60 , B/P 128 /71 , Respiratory Rate 18 , O2 SAT 99 , Room Air, O2 Flow Rate . Vital Sign Comment: [] Latest Lopez Fall Score: 20 Fall Risk: Low Risk Safety Measures: Call light Within Reach, Bed Alarm Zone 1, Side Rails Side Rails x2, Bed position Low and Locked. Fall Precautions: Door Sign Patient Fall Education Report given to [Racheal Medrano RN. Informed that patient has an order for discharge home].
--- NOTE | 2020-04-14 08:30 | Discharge Summary ---
DATE OF ADMISSION: 04/11/2020 DATE OF DISCHARGE: 04/14/2020 HISTORY OF PRESENT ILLNESS AND HOSPITAL COURSE: The patient is a 49-year-old man admitted to continue participation in [employer] clinical trial, [id number]. On the second hospital day, he received the fifth of the projected 5 cycles of investigational product. He was observed carefully for the next two nights and no adverse events were noted and the patient feels well. The patient will be discharged in stable condition to home with followup in the office next week. OUTPATIENT MEDICATIONS: Include Biktarvy one tablet. DISCHARGE DIAGNOSES: 1. Participation in [employer] clinical trial. 2. HIV infection, well controlled. Mckinley Lynn M.D. DR: SUBHASH/DAKOTAH JOB#: [id number] CC: Mckinley Lynn M.D.; [id number] [facility] [address]; [place] [address]
[2020-04-14 08:35] LABS: BASOPHILS % (AUTO) 1.2 % (0.0-2.0); EOSINOPHILS % (AUTO) 3.4 % (0.0-3.0); HEMATOCRIT 41.6 % (42.0-52.0); HEMOGLOBIN 14.6 G/DL (14.2-18.0); LYMPHOCYTES % (AUTO) 40.3 % (20.0-45.0); MEAN CORPUSCULAR VOLUME 92 FL (80-99); MONOCYTES % (AUTO) 16.7 % (1.0-10.0); NEUTROPHILS % (AUTO) 38.4 % (45.0-75.0); PLATELET COUNT 223 K/UL (150-450); RED BLOOD COUNT 4.53 M/UL (4.70-6.10); RED CELL DISTRIBUTION WIDTH 12.5 % (11.6-14.8); WHITE BLOOD COUNT 4.1 K/UL (4.8-10.8)
--- NOTE | 2020-04-14 09:00 | NUR ---
NURSE NOTES: DISCHARGED HOME,AMBULATORY IN STABLE CONDITION.
== END 2020-04-14 09:00 | disposition home or self-care (01) | DRG 951 ==
LOC: 3E 14:25
DX: Z00.6 Encounter for examination for normal comparison and control in clinical research program (principal); B20 Human immunodeficiency virus [HIV] disease; E78.5 Hyperlipidemia, unspecified
CPT/HCPCS: 36415; 85007; 85025